=== PATIENT | female | born 1970 | race Caucasian/White ===

== ENCOUNTER 2016-10-22 19:29 | Emergency (ER) | payer OTHER ==
[~2016-10-22] VITALS: Ht 172.7 cm; Wt 128.8 kg
[~2016-10-22 19:29] MED LIST: AMT25T PO; BACL20TA PO; DULO60CA61 PO; GABA-502 PO; HYDR-3091 PO; LEVO112T4 PO; METF500T4 PO; PRED5TAB PO; TRAZ-115 PO
[2016-10-22 19:32] VITALS: BP 174/100; PULSE 79; RESP 20; O2SAT 99
--- NOTE | 2016-10-22 19:39 | ED.REPORT ---
HPI-General Illness Date of Service Oct 22, 2016 ED Provider: Bam Ramirez MD Pt is a 46 year old female with a history of HTN who presents to the ED complaining of sharp, moderate, cramping upper abdominal pain radiating down to the left onset 4 days ago. She c/o associated diaphoresis, nausea, and chills. She denies vaginal discharge, vaginal bleeding, diarrhea, constipation, and vomiting. The pt reports that her pain is exacerbated and relieved by nothing. She states that she uses THC, and that she has been gradually weaning off her medication including gabapentin, amitriptyline, and hydrocodone. No other complaints at this time. Pt presented to [facility] and was referred to the ED for further evaluation. Nursing Notes Stated Complaint: ABDOMINAL PAIN Chief Complaint: Female Abdominal Pain Nursing Notes Reviewed: Yes Allergies: Coded Allergies: amoxicillin (Verified Allergy, Mild, Hives, 02/27/16) morphine (Verified Allergy, Unknown, 02/27/16) Scheduled Amitriptyline (Amitriptyline) 25 Mg Tab 25 MG PO every other night hs Duloxetine (Duloxetine) 60 Mg Capsule.dr 60 MG PO DAILY Gabapentin (Gabapentin) 300 Mg Capsule 900 MG PO DAILYWM Gabapentin (Gabapentin) 300 Mg Capsule 600 MG PO bid w lunch and dinn Hydrocodone-Acetaminophen 7.5-300 mg (Hydrocodone-Acetaminophen 7.5-300 mg) 1 Each Tablet 2 TABLET PO BIDBL Hydrocodone-Acetaminophen 7.5-300 mg (Hydrocodone-Acetaminophen 7.5-300 mg) 1 Each Tablet 1 EACH PO 4pm Levothyroxine (Levothyroxine) 112 Mcg Tablet 112 MCG PO DAILY Metformin (Metformin) 500 Mg Tablet 500 MG PO BID Prednisone (PredniSONE Dose Javier) 5 Mg Tab.ds.pk 1 TABLET PO UD TAKE DIRECTED ON PACKAGE OR BY PHYSICIAN. Trazodone (Trazodone) 50 Mg Tablet 150 MG PO HS Scheduled PRN Baclofen (Baclofen) 20 Mg Tablet 20 MG PO BID PRN PRN For Pain Dicyclomine (Dicyclomine) 10 Mg Capsule 10 MG PO QID PRN PRN For GI Cramps Ondansetron ODT (Ondansetron ODT) 4 Mg Tab.rapdis 4 MG PO Q8H PRN PRN For Nausea General Time Seen by : 19:39 Chief Complaint Abdominal pain Hx Obtained From: Patient Arrived By: Walk-in Onset Occurred: 4 days ago Symptom Duration: Intermittent Location: : Abdomen Quality: Cramping, Sharp Severity: Current: Moderate Severity: Maximum: Moderate Recent Healthcare: Recent doctor visit Similar Sx Previous: No Past Medical History Past Medical History prediabetes Neck nerve damage Reports: Asthma, GERD, Hypertension Reports: Morbid Obesity, Thyroid disease, Urinary tract infection Past Surgical History Thyroid Reports: Appendectomy, , Cholecystectomy Smoking History Former Smoker (2012) Social History Alcohol Use: Denies alcohol use Drug Use: THC Ambulatory Status Independent Review of Systems Full Review of Systems Constitutional: Reports: Chills Eyes: Denies: Diplopia Ears / Nose / Throat: Denies: Sore throat Respiratory: Denies: Shortness of breath Cardiovascular: Denies: Chest pain GI: Reports: Abdominal pain, Nausea, Denies: Constipation, Diarrhea, Hematochezia, Vomiting Female: Denies: Pelvic pain, Vaginal bleeding - abnl, Vaginal discharge Musculoskeletal: Denies: Back pain Endocrine: Denies: Polyuria Skin: Reports Diaphoresis Neurologic: Denies: Bladder dysfunction Physical Exam Nursing note and vitals reviewed. Constitutional: Well-developed, well-nourished. Not diaphoretic. Head: Normocephalic and atraumatic. Mouth/Throat: Oropharynx is clear and moist. No oropharyngeal exudate. Eyes: EOM are normal. Pupils are equal, round, and reactive to light. Neck: Supple, no tracheal deviation. Cardiovascular: Normal rate, regular rhythm. Equal and intact distal pulses throughout. Pulmonary/Chest: Effort normal and breath sounds normal. No respiratory distress. Abdominal: Soft. No distension. There is no tenderness, rebound, or guarding. Bowel sounds present. Musculoskeletal: Range of motion grossly intact, moving all extremities. No edema or tenderness appreciated. Neurological: AOx3. Grossly nonfocal exam. Strength and sensation intact and equal to bilateral upper and lower extremities. Skin: Warm and dry, no rashes or pallor appreciated. Psychiatric: Appropriate mood and affect. Behavior appears normal. Vital Signs Vital Signs Date Time Temp Pulse Resp B/P Pulse Ox O2 Delivery O2 Flow Rate FiO2 10/23/16 00:03 36.3 67 22 123/97 96 Room Air 10/22/16 22:19 76 24 145/102 96 Room Air 10/22/16 21:18 75 24 95/70 97 Room Air 10/22/16 19:32 37.0 79 20 174/100 99 Room Air Initial VS: Reviewed Interpretation & Diagnostics Lab Results Interpretation Result Diagram: 10/22/16195210/22/161952 Test 10/22/16 19:53 10/22/16 19:55 White Blood Count 9.1th/mm3 (3.8-10.1) Red Blood Count 5.06mil/mm3 (3.90-5.20) Hemoglobin 15.4g/dL (12.0-15.6) Hematocrit 44.5% (35.0-46.0) Mean Corpuscular Volume 87.9fL (81-100) Mean Corpuscular Hemoglobin 30.4pg (27.0-35.0) Mean Corpuscular Hemoglobin Concent 34.6% (32.0-37.0) Red Cell Distribution Width 12.2% (12.3-15.4) Platelet Count 372bil/L (150-400) Neutrophils (%) (Auto) 65.8% (40-74) Lymphocytes (%) (Auto) 21.2% (14-46) Monocytes (%) (Auto) 6.9% (4-12) Eosinophils (%) (Auto) 5.8% (0-5) Basophils (%) (Auto) 0.2% (0-3) Prothrombin Time 10.3sec (8.1-12.5) Prothromb Time International Ratio 0.96ratio Sodium Level 139mEq/L (134-144) Potassium Level 4.4mEq/L (3.5-5.2) Chloride Level 103mEq/L (97-108) Carbon Dioxide Level 22mmol/L (18-29) Blood Urea Nitrogen 9mg/dL (6-24) Creatinine 0.88mg/dL (0.57-1.00) Estimat Glomerular Filtration Rate 100mL/min (>59) Glucose Level 123mg/dL (60-99) Lactic Acid Level 1.1mmol/L (0.4-2.0) Calcium Level 9.5mg/dL (8.5-10.1) Magnesium Level 1.8mg/dL (1.6-2.6) Total Bilirubin 0.5mg/dL (0.0-1.2) Aspartate Amino Transf (AST/SGOT) 22U/L (0-50) Alanine Aminotransferase (ALT/SGPT) 47U/L (0-32) Alkaline Phosphatase 65U/L (25-150) Total Protein 7.5g/dL (6.4-8.4) Albumin 4.1g/dL (3.4-5.0) Lipase 18U/L (13-60) Urine Color Yellow (YELLOW) Urine Appearance Clear (CLEAR,HAZY) Urine pH 5.5 (5.0-8.0) Urine Specific Soldier 1.025 (1.003-1.035) Urine Protein Tracemg/dL (NEG,TRACE) Urine Glucose (UA) Negativemg/dL (NEGATIVE) Urine Ketones Tracemg/dL (NEGATIVE) Urine Occult Blood Trace (NEGATIVE) Urine Nitrite Negative (NEGATIVE) Urine Bilirubin Negative (NEGATIVE) Urine Urobilinogen Normalmg/dL (NORMAL) Urine Leukocyte Esterase Negative (NEGATIVE) Urine RBC 0-2/hpf (0-2) Urine WBC 0-5/hpf (0-5) Urine Epithelial Cells Moderate/hpf (NONE-MOD) Urine Crystals None seen (NONE SEEN) Urine Bacteria Few/hpf (NONE-FEW) Urine Hyaline Casts None/lpf (NONE) Urine Granular Casts None seen (NONE SEEN) Urine Waxy Casts None seen (NONE SEEN) Urine Red Blood Cell Casts None seen (NONE SEEN) Urine White Blood Cell Casts None seen (NONE SEEN) Urine Mucus Present (None Seen) Urine Trichomonas None seen (NONE SEEN) Urine Yeast None (NONE SEEN) Urinalysis Comment None Urine Culture Reflexed Not indicated ECG Interpretation ECG Interpretation: Sinus rhythm with a rate of [address] elevation, probable normal early repol pattern Time: 19:54 Interpreted by: ED physician CT Abd / Pelvis Interpretation IMPRESSION: Prior cholecystectomy. No intestinal obstruction or perforation found. Incidental note is made of a small 1.8 cm cyst at the right ovary. Source of current abdominal pain is not seen. Dictated by: Tl Hammonds M.D. on 10/22/2016 at 21:42 Study type: Abdominal CT IV contrast Interpretation / Wet Read by: Interpret - Radiologist Re-Eval/Medical Decision Med Decision/Clinical Course In summary, 46-year-old female presenting to the ED for evaluation of upper abdominal pain. Differential is broad and includes small bowel obstruction, cholecystitis, appendicitis, pancreatitis, intestinal obstruction, perforation. Of note, patient is not having any lower abdominal pain, pelvic pain, vaginal discharge, or other related complaints. CBC, CMP, urinalysis all grossly within normal limits. EKG demonstrates sinus rhythm with no acute ischemic changes. The patient is not having any chest pain and does have some very mild upper abdominal tenderness to palpation upon reassessment. CT scan of the patient's abdomen demonstrates no acute abnormalities that would account for her current symptoms. She does have a small right ovarian cyst, which I discussed with her, however this does not seem to fit with her clinical presentation. She was given Zofran and pain medication here in the ED with some improvement in her symptoms. I also gave her a dose of Bentyl and will prescribe her a short course until she can follow up with her primary care physician. Given the reassuring workup above and her improvement here in the ED , reasonable to discharge home with careful return precautions, follow up with her PCP tomorrow. Patient agreeable to the plan as stated, no further questions. Source of Hx: Old records Time of Eval: 23:05 Re-Evaluation/Progress Note: Pt rechecked. Informed pt of plan for discharge. Pt understands and agrees with plan for discharge. F/U instructions and RTER warnings given. All questions addressed. Counseled Regarding: Diagnosis, Lab results, Need for follow-up, When/why to return to ED Discharge & Departure Primary Impression: Abdominal pain Abdominal location: upper abdomen, unspecified Qualified Code: R10.10 - Upper abdominal pain, unspecified Disposition: Home Discharge Condition All VS Reviewed: Yes Condition: Stable Patient Instructions: Acute Abdominal Pain (ED) Additional Instructions: Thank you for allowing us to be a part of your care today. Please follow up with your regular doctor tomorrow. Please return to the ED immediately if you develop any worsening pain, vomiting, chest pain, shortness of breath, or if there's anything else of concern to you. Please talk with your doctor about the medicine I prescribed you. Referrals: Calos Saeed DO (PCP) Scribe Attestation Portions of this note were transcribed by Oanh Velásquez. I, Dr. Ramirez personally performed the history, physical exam and medical decision-making; I reviewed and confirmed the accuracy of the information in the transcribed note. Signed by: Jan Murray, 10/22/16. copies to: Calos Saeed William B MD Oct 22, 2016 19:39 Oanh Rosado Oct 22, 2016 21:30
[2016-10-22] MEDS ORDERED: Ondansetron 2 mg/mL 2 mL Inj IVPUSH PRN (19:40)
[2016-10-22 20:01] LABS: BASOPHILS % (AUTO) 0.2 % (0-3); EOSINOPHILS % (AUTO) 5.8 % (0-5); MONOCYTES % (AUTO) 6.9 % (4-12); Mean Corpuscular Hemoglobin 30.4 pg (27.0-35.0); Mean Corpuscular Volume 87.9 fL (81-100); NEUTROPHILS % (AUTO) 65.8 % (40-74); Platelet Count 372 bil/L (150-400)
[2016-10-22 20:13] LABS: APPEARANCE,URINE CLEAR (CLEAR,HAZY); COLOR,URINE YELLOW (YELLOW); OCCULT BLOOD,URINE TRACE (NEGATIVE); PH,URINE 5.5 (5.0-8.0); UROBILINOGEN,URINE NORMAL (NORMAL)
[2016-10-22 20:13] LABS: INR 0.96 ratio
[2016-10-22 20:17] LABS: Magnesium 1.8 mg/dL (1.6-2.6)
[2016-10-22] MEDS ORDERED: HYDROmorphone 0.5 mg/0.5 mL iSecure Syringe IVPUSH PRN (20:40)
[2016-10-22 21:18] VITALS: BP 95/70; PULSE 75; RESP 24; O2SAT 97
--- NOTE | 2016-10-22 21:48 | DRSVH ---
PROCEDURE: CT ABDOMEN AND PELVIS WITH CONTRAST ([id number]) INDICATIONS: abd pain TECHNIQUE: After the administration of intravenous contrast, 5 mm thick sections acquired from the diaphragm to the symphysis. 5 mm coronal and sagittal reformats were acquired. For radiation dose reduction, the following was used: automated exposure control, adjustment of mA and/or kV according to patient siz e. COMPARISON: None. FINDINGS: Image quality: Excellent. ABDOMEN: Lung bases: Lung bases are clear. Heart size is normal. Solid organs: Liver and spleen are normal in size and enhancement. Gallbladder has been previously resected. Biliary system is non dilated. Pancreas enhances normally. No adrenal nodules. Kidneys demonstrate normal size and enhancement, without hydronephrosis. Peritoneum and bowel: Bowel loops demonstrate normal wall thickness and caliber. No free fluid or a ir. Nodes and vessels: No retroperitoneal or mesenteric adenopathy by size criteria. Aorta and inferior vena cava are normal in size. Miscellaneous: No ventral hernias. PELVIS: Genitourinary: Bladder wall thickness is normal. 1.8 cm simple appearing right ovarian cyst inciden tally noted. Miscellaneous: No inguinal hernias or adenopathy. Bones: No suspicious bony lesions. No vertebral body compression fractures. IMPRESSION: Prior cholecystectomy. No intestinal obstruction or perforation found. Incidental note is made of a small 1.8 cm cyst at the right ovary. Source of current abdominal pain is not seen. Dictated by: Tl Hammonds M.D. on 10/22/2016 at 21:42 Approved by: Tl Hammonds M.D. on 10/22/2016 at 21:46
[2016-10-22 22:19] VITALS: BP 145/102; PULSE 76; RESP 24; O2SAT 96
[2016-10-22] MEDS ORDERED: DICY10CA13 PO (23:11)
[2016-10-22] MEDS ORDERED: ONDA4TAB12 PO (23:57)
[2016-10-23 00:03] VITALS: BP 123/97; PULSE 67; RESP 22; O2SAT 96
== END 2016-10-23 00:04 | disposition home or self-care (01) ==
LOC: SED 19:29
DX: R10.10 Upper abdominal pain, unspecified (principal); R61 Generalized hyperhidrosis; R11.0 Nausea; R68.83 Chills (without fever); R73.03 Prediabetes; J45.909 Unspecified asthma, uncomplicated; K21.9 Gastro-esophageal reflux disease without esophagitis; I10 Essential (primary) hypertension; Z88.1 Allergy status to other antibiotic agents; Z88.5 Allergy status to narcotic agent; Z87.440 Personal history of urinary (tract) infections; Z87.891 Personal history of nicotine dependence; Z79.84 Long term (current) use of oral hypoglycemic drugs
CPT/HCPCS: 36415; 74177; 80053; 81000; 83605; 83690; 83735; 85025; 85610; 93005; 96374; 96375; 99285; J1170; J2405; Q9967

== ENCOUNTER → 2016-11-19 | Day surgery (SDC) | payer OTHER ==
[~2016-11-19] VITALS: Ht 172.7 cm; Wt 130.0 kg
[~2016-11-19] MED LIST changes: +0.9% Sodium Chloride 1,000 ML IV ONE; +ALBU8.5H2 INHALATION; +DICY10CA13 PO; +LICO1POW MC; +ONDA4TAB12 PO; +PANT40TA3 PO; +PHEN15CA67 PO; +fentaNYL-PF 50 mCg/mL 2 mL Inj ONE
[2016-11-19 10:29] VITALS: BP 119/72; PULSE 63; RESP 16; O2SAT 97
[2016-11-19 11:24] VITALS: BP 118/77; PULSE 66; RESP 16; O2SAT 95
[2016-11-19 11:33] VITALS: BP 118/81; PULSE 61; RESP 17; O2SAT 96
[2016-11-19 11:43] VITALS: BP 127/88; PULSE 66; RESP 17; O2SAT 99
--- NOTE | 2016-11-19 11:43 | ENDO ---
[address] [address] ENDOSCOPY PROCEDURE PATIENT: SHIN BROOKS : 1970 MR#: [id number] ADMIT: 11/19/2016 JOB ID: [id number] DATE OF SERVICE: 11/19/2016 TYPE OF OPERATION: Esophagogastroduodenoscopy with biopsy. PREOPERATIVE DIAGNOSIS(ES): Epigastric pain. POSTOPERATIVE DIAGNOSIS: Normal upper endoscopy. ANESTHESIA: 1. Fentanyl 125 mcg. 2. Versed 9 mg IV administered. COMPLICATIONS: None. BLOOD LOSS: Minimal. DESCRIPTION OF PROCEDURE: After risks and benefits explained to the patient informed obtained. After anesthesia administered, upper endoscope was inserted in mouth into the esophagus, stomach, second portion of duodenum. Mucosa carefully examined. After the procedure was done, the scope withdrawn, and procedure terminated. FINDINGS: Upon inspection of the esophagus, esophagus was normal without masses, ulcers, or lesions. Z-line located 40 cm from the incisors. Upon entering the stomach normal without masses, ulcers, or lesions. Retroflexion was normal. Duodenal bulb, first, and second portion normal. Biopsies of the antrum and body of the stomach. IMPRESSIONS: 1. Normal upper endoscopy. 2. Status post biopsy. RECOMMENDATION: Await pathology results. Follow up in GI clinic as needed.
--- NOTE | 2016-11-22 13:17 | PATH ---
SURGICAL PATHOLOGY Attending Physician:Khai Scott MD CASE STATUS: Signed Out PATIENT NAME: SHIN BROOKS PID: [id number] : 1970 DATE COLLECTED:11/19/2016 19:44 SPECIMEN: 1: Stomach, Antrum, Biopsy 2: Gastric, Biopsy CLINICAL HISTORY: 1). ANTRUM BIOPSY 2). GASTRIC BODY BIOPSY RULE OUT H PYLORI FINAL DIAGNOSIS: 1. Stomach, Antrum, Biopsy: Normal antral mucosa. Negative for inflammation and Helicobacter organisms. Negative for intestinal metaplasia, dysplasia, and malignancy. 2. Stomach Body, Biopsy: Body mucosa with mild chronic gastritis. Negative for active inflammation and Helicobacter organisms. Negative for intestinal metaplasia, dysplasia and malignancy. ICD10: K29.7 GROSS DESCRIPTION: The specimen is received in two formalin filled containers labeled with the patient's name. 1). The specimen is labeled "antrum" and consists of 2 portions of tissue which aggregate to 0.3 x 0.3 x 0.2 CM. The specimen is entirely submitted in cassette 1A. 2). The specimen is labeled "gastric body" and consists of a 0.3 x 0.2 x 0.2 CM portion of tissue which is entirely submitted in cassette 2A. 11/19/2016DC ICD-9 CODES: CPT CODES: 1: 01150 2: 44459 Electronically Signed Out Blayne Sr MD, PhD [facility] Pathology [facility], [place] [address] Technical component performed at [facility] [address], [place], [address]
== END | disposition home or self-care (01) ==
LOC: END 01:43
PROVIDERS: ATTEND Internal Medicine Gastroenterology
DX: K29.50 Unspecified chronic gastritis without bleeding (principal); I10 Essential (primary) hypertension; G47.00 Insomnia, unspecified; E03.9 Hypothyroidism, unspecified; J45.909 Unspecified asthma, uncomplicated; Z87.891 Personal history of nicotine dependence; E66.01 Morbid (severe) obesity due to excess calories; Z68.41 Body mass index [BMI] 40.0-44.9, adult